=== PATIENT | male | born 1940 | race Caucasian/White ===

== ENCOUNTER → 2017-03-23 | Outpatient (CLI) | payer OTHER, BC ==
[~2017-03-23] MED LIST: CIPROFLOXACIN PO; COUMADIN4 MG PO; GEMFIBROZIL600 MG PO; GLIPIZIDE10 M2 PO; HUMULIN R100 U/1 M1; LAC PO; LASIX20 MG PO; LEVEMIR100 U/M1; LEVOXYL0.075 MG PO; METOPROLOL TART50 MG PO; NEU300 PO; ZOCOR40 MG PO
== END | disposition home or self-care (01) ==
LOC: RD 12:28
DX: R05 Cough (principal)

== ENCOUNTER 2017-12-08 13:30 | Emergency (ER) | payer OTHER, BC ==
[~2017-12-08] VITALS: Ht 172.7 cm; Wt 108.9 kg
[2017-12-08 13:45] VITALS: BP 125/62; Ht 172.7 cm; Wt 108.9 kg
== END 2017-12-08 19:06 | disposition home or self-care (01) ==
LOC: ED 13:30
DX: S01.01XA Laceration without foreign body of scalp, initial encounter (principal); E11.9 Type 2 diabetes mellitus without complications; I10 Essential (primary) hypertension; E78.00 Pure hypercholesterolemia, unspecified; Z88.0 Allergy status to penicillin; W18.30XA Fall on same level, unspecified, initial encounter; Y93.89 Activity, other specified; Y99.8 Other external cause status; Y92.89 Other specified places as the place of occurrence of the external cause
CPT/HCPCS: 90715; J1885; J2001

== ENCOUNTER 2018-04-26 14:03 | Emergency (ER) | payer OTHER, BC ==
[~2018-04-26] VITALS: Ht 172.7 cm; Wt 99.8 kg
[2018-04-26 14:16] VITALS: Ht 172.7 cm; Wt 99.8 kg
[2018-04-26 18:00] VITALS: BP 155/74
== END 2018-04-26 18:00 | disposition home or self-care (01) ==
LOC: ED 14:03
DX: S62.002A Unspecified fracture of navicular [scaphoid] bone of left wrist, initial encounter for closed fracture (principal); S20.219A Contusion of unspecified front wall of thorax, initial encounter; I10 Essential (primary) hypertension; E11.9 Type 2 diabetes mellitus without complications; E78.00 Pure hypercholesterolemia, unspecified; V89.2XXA Person injured in unspecified motor-vehicle accident, traffic, initial encounter; Y93.73 Activity, racquet and hand sports; Y92.89 Other specified places as the place of occurrence of the external cause; Y99.8 Other external cause status; Z88.0 Allergy status to penicillin

== ENCOUNTER → 2018-05-04 | Outpatient (CLI) | payer OTHER, BC | END | disposition home or self-care (01) | LOC: CT 14:45 | PROC: BW24ZZZ Computerized Tomography (CT Scan) of Chest and Abdomen (ICD-10-PCS; principal; 2018-05-04) | DX: S22.20XA Unspecified fracture of sternum, initial encounter for closed fracture (principal); X58.XXXA Exposure to other specified factors, initial encounter; Y92.9 Unspecified place or not applicable ==